=== PATIENT | female | born 1980 | race Caucasian/White ===

== ENCOUNTER 2019-03-01 03:05 | Day surgery (SDC) | payer BC ==
[2019-03-01 03:45] VITALS: BP 111/68; TEMP 97.9; BMI 21.7
[2019-03-01] MEDS ORDERED: Butorphanol Tartrate 1 MG/ML VIAL SLOW IVP PRN (03:57)
[2019-03-01] MEDS ORDERED: Promethazine HCl 25 MG/ML VIAL IM/IV PRN (03:57)
[2019-03-01] MEDS ORDERED: Lactated Ringer's 1,000 ML IV SCH (04:00)
--- NOTE | 2019-03-01 04:00 | PDOC.LDHP ---
Labor and Delivery H&P HPI: Patient of Inga Palacios Here for CTX at 32 weeks HPI: 38 yo SAB1 prior x 1 in past at 35 weeks, here for irreg CTX every 2-6 min or so. No VB no LOF. Good fm. Review of Systems: complete ROS completed and as per HPI Current gestational age (weeks): 32 (3 days) Due date: 04/23/19 Dating criteria: last menstrual period Grav: 3 Para: 1 OB History Details: at 35 weeks Current complications: none Abnormal US findings: No Current medications: pre- vitamins Previous surgical history: other (eye surg as child) Allergies/Adverse Reactions: Allergies Allergy/AdvReac Type Severity Reaction Status Date / Time No Known Allergies Allergy Unverified 03/01/19 03:36 Social history: none - Physical Exam Vital signs reviewed and normal: yes (111/68) General: NAD Heart: RRR Lungs: CTAB Abdomen: gravid Extremeties: no edema FHT: category 1 [place] contractions every: irregualr about every 3-6 - Assessment threatened PTL at 32 weeks - Plan Plan: observation in L&D (1. I have ordered a cervical length check, 2. If short , order FFN if applicable, 3. IVF hydrate. If evidence of true PTL, we will admit for steroids/ABX. Past EGA for MagSulfate for neuroprotection)
--- NOTE | 2019-03-01 05:09 | PDOC.EVN ---
Event Note - Event Note Event Note: CX by harshad is 3.1cm long. This is reassurring. BUT, still with some CTX...I will give stadol and phenergan and try TERB x1 SQ for therapeutic rest. Follow for another hour.
[2019-03-01] MEDS ORDERED: Terbutaline Sulfate 1 MG/ML VIAL ONE (05:12)
[2019-03-01] MEDS ORDERED: Terbutaline Sulfate 1 MG/ML VIAL SC SCH (05:15)
--- NOTE | 2019-03-01 07:57 | PDOC.EVN ---
Event Note - Event Note Event Note: Now feels better. Was able to rest. CTXs have greatly spaced out to one evry 10-20 minutes No LOF No VB BPs ok, HR 80 Threatened PTL at 32 weeks with CL 3.1 last check. Feels better. Likely home this AM
--- NOTE | 2019-03-01 10:07 | ULT ---
PRELIMINARY REPORT/[facility]/EMERGENCY AFTER HOURS PROCEDURE: EXAM: US , Transvaginal EXAM DATE/TIME: 03/01/2019 4:42 AM CLINICAL HISTORY: 38 years old, female; Pain; Other: Contractions at 32wks, HX of prev ; TECHNIQUE: Imaging protocol: Real-time transvaginal obstetrical ultrasound of the maternal pelvis and a first tr imester with image documentation. Transvaginal imaging was used for better evaluation of th e fetus and adnexa. COMPARISON: No relevant prior studies available. FINDINGS: GESTATION: Gestation: Not-evaluated for purpose of this exam. Presentation: Fetus is in a vertex position. MATERNAL: Cervix: Cervical length measures approximately 3 cm. IMPRESSION: Cervical length measures approximately 3 cm. Thank you for allowing us to participate in the care of your patient. Dictated and Authenticated by: Nate Amaya MD 03/01/2019 5:27 AM Central Time ([place] & [place]) FINAL REPORT TRANSVAGINAL ULTRASOUND: Date: 03/01/19 HISTORY: Evaluate cervical length. Patient is 32 weeks . FINDINGS: Translabial examination demonstrates cervical length of 3.1 cm. Fetus is in vertex presentation. Parul ent is having contractions. IMPRESSION: Cervical length is 3.1 cm on this limited translabial ultrasound examination only. Report in agreement with preliminary report given on-call by Elie. POS: [facility]
--- NOTE | 2019-03-01 10:31 | DIS ---
DATE OF ADMISSION: 03/01/2019 DATE OF DISCHARGE: 03/01/2019 TIME OF DISCHARGE: 1015 hours. SUMMARY OF HOSPITAL COURSE: Ms. Seth came in at approximately 0330 hours. She sees Elba Palacios at [facility]. She is a G3, P1, at 32 weeks, on [place], having contractions q.2 to 6 upon presentation. She received IV hydration, terbutaline, and contractions have ceased. Cervical length was 3 cm on ultrasound. heart rate tracing has been reassuring with positive accelerations, no decelerations, and no contractions noted. Vitals are stable with a blood pressure of 110/68, pulse of 92, respirations of 18, and the patient has remained afebrile. The patient will be discharged home. She will keep scheduled followup with Elba Palacios. She has ER precautions for return of contractions. Job ID: [id number]
== END 2019-03-01 10:20 | disposition home health service (06) ==
LOC: L&D/OP 03:05
PROVIDERS: ATTEND Obstetrics & Gynecology
DX: O47.03 False labor before 37 completed weeks of gestation, third trimester (principal); Z3A.32 32 weeks gestation of pregnancy
CPT/HCPCS: 96360; 96372; 96375; 99282; J0595; J2550; J3105

== ENCOUNTER 2019-04-05 16:40 | Day surgery (SDC) | payer BC ==
[2019-04-05 17:20] VITALS: BP 137/74; TEMP 98.3; BMI 22.6
[2019-04-05] MEDS ORDERED: hydrALAZINE 20 MG/ML VIAL SLOW IVP PRN (19:58)
--- NOTE | 2019-04-05 20:55 | PRG ---
DATE OF SERVICE: 04/05/2019 TIME OF SERVICE: 1945 hours. PRESENTING COMPLAINT: Contractions at 37 to 38 weeks. HISTORY OF PRESENT ILLNESS: Ms. Seth is a 38-year-old, 3, para 1, AB1 at 37 and 3 with EDC of 04/23/2019, complains of contractions off and on for the past several days. She was seen in the office last week and noted to be 3, 50, and -2. She denies rupture of membranes. She reports an active fetus. [employer] HISTORY: delivery x1. SAB x1. Advanced maternal age. Blood type B negative. Group B strep positive. 50-gram within normal limits. PAST MEDICAL HISTORY: None. PAST SURGICAL HISTORY: Eye surgery at age 1. ALLERGIES: NONE. MEDICATIONS: 1. Bupap. 2. Zenda. 3. vitamins. 4. The patient received RhoGAM at appropriate time. SOCIAL HISTORY: Denies tobacco, alcohol, or drug use. FAMILY HISTORY: Noncontributory. REVIEW OF SYSTEMS: Noncontributory. PHYSICAL EXAMINATION: GENERAL: Thin white female, in no acute distress. VITAL SIGNS: Temperature 98.7, respirations 18, blood pressure 118/72, pulse 75. HEENT: Within normal limits. LUNGS: Clear to auscultation bilaterally. HEART: Regular rate and rhythm. ABDOMEN: Soft and nontender without significant palpable contractions. Fundal height 36. FHTs 140s. VULVA: Without lesions. VAGINA: Without discharge. CERVICAL: Exam by RN both on presentation and after walking for 2 hours is 3 to 3-1/2, 70% effaced, -2, cephalic, bag of water intact, ballots with ease. EXTREMITIES: No clubbing, cyanosis, or edema. monitoring is carried out x2 for greater than 20 minutes with positive accelerations, no decelerations. Baseline is 140s to 150s. Accelerations to 160s. No decelerations noted. Category I heart rate tracing. IMPRESSION: [place] contractions. No evidence of active labor nor evidence of rupture of membranes. PLAN: Discharge home. ER precautions. If the patient returns in labor, we will administer appropriate group B strep prophylaxis. The patient is to keep scheduled followup in 4 days with Elba Palacios at [facility]. Job ID: [id number]
== END 2019-04-05 20:00 | disposition home or self-care (01) ==
LOC: L&D/OP 16:40
PROVIDERS: ATTEND Obstetrics & Gynecology
DX: O47.1 False labor at or after 37 completed weeks of gestation (principal); Z3A.37 37 weeks gestation of pregnancy
CPT/HCPCS: 99283

== ENCOUNTER 2019-04-06 22:26 | Inpatient (IN) | payer BC ==
[2019-04-06] MEDS ORDERED: Lidocaine 1% (PF) 30 ML VIAL ONE (22:41)
[2019-04-06] MEDS ORDERED: Oxytocin 10 UNITS/ML VIAL ONE (22:41)
[2019-04-06] MEDS ORDERED: Promethazine HCl 25 MG/ML VIAL IM PRN (23:05)
[2019-04-06] MEDS ORDERED: Lactated Ringer's 1,000 ML IV PRN (23:05)
[2019-04-06] MEDS ORDERED: Methylergonovine 0.2 MG/ML VIAL IM PRN (23:05)
[2019-04-06] MEDS ORDERED: Lidocaine 1% (PF) 30 ML VIAL SC PRN (23:05)
[2019-04-06] MEDS ORDERED: HYDROcodone/Acetaminophen 5/325 mg Tablet PO PRN ×2 (23:05)
[2019-04-06] MEDS ORDERED: Misoprostol 200 MCG TAB PR PRN (23:05)
[2019-04-06] MEDS ORDERED: NS / Oxytocin 40 units/1000ml 1,000 ML IV PRN (23:05)
[2019-04-06] MEDS ORDERED: hydrALAZINE 20 MG/ML VIAL SLOW IVP PRN (23:05)
[2019-04-06] MEDS ORDERED: Ibuprofen 800 MG TAB PO PRN (23:05)
[2019-04-06] MEDS ORDERED: Ondansetron PF 4 MG/2 ML Vial IVP PRN (23:05)
--- NOTE | 2019-04-06 23:15 | PDOC.LDHP ---
Labor and Delivery H&P Chief complaint: contractions, loss of fluid HPI: contractions started at 1800 tonight, irregular but intense, with bloody show. At 2200 her water broke and things got very intense and she arrived to the hospital crowing. Current gestational age (weeks): 37 Dating criteria: last menstrual period Grav: 2 Para: 1 OB History Details: delivery at 34 weeks with first delivery Current complications: none, other (Advanced Maternal age) Abnormal US findings: No Current medications: pre-vanessa vitamins Allergies/Adverse Reactions: Allergies Allergy/AdvReac Type Severity Reaction Status Date / Time No Known Allergies Allergy Verified 04/05/19 17:20 Social history: other - Physical Exam Vital signs reviewed and normal: yes General: breathing through contractions Lungs: nonlabored breathing Abdomen: gravid FHT: category 1 - Vaginal Exam cm dilated: 10 Effacement: 100% Station: 3+ - OB Labs Antibody Screen: negative HIV: negative RPR: negative HEPSAg: negative 1 hour GCT: negative GBS: positive Urine drug screen: negative Rubella: immune - Assessment L&D Assessment: term patient in labor - Plan Plan: admit to L&D, GBS antibiotic prophylaxis, informed consent obtained
--- NOTE | 2019-04-06 23:22 | PDOC.OPDEL ---
OB Operative/Delivery Note Delivery Dr/Surgeon: arely Assist: Arie Weeks gestation: 37 Anesthesia: none - Findings A Sex: male - 1 min: 8 - 5 min: 9 - Additional Findings/Plan Placenta delivered: spontaneous Repaired Obstetrical Laceration: 1st degree Estimated blood loss: 250 mL Post delivery plan: routine recovery
[2019-04-07 00:33] LABS: Hemoglobin 11.9 g/dL (12.0-16.0); Mean Corpuscular HGB CONC 33.8 g/dL (32.0-36.0); Mean Corpuscular Hemoglobin 32.3 pg (27.0-31.0); Mean Corpuscular Volume 95.7 fL (78.0-98.0); Mean Platelet Volume 6.8 fL (7.4-10.4); Platelet Count 275 thou/uL (130-400); RBC Distribution Width 11.4 % (11.5-14.5); Red Blood Cell (RBC) Count 3.69 mill/uL (4.20-5.40); White Blood Cell (WBC) Count 18.3 thou/uL (4.8-10.8)
[2019-04-07 00:57] VITALS: BMI 22.6
[2019-04-07 01:11] LABS: HBSAg Index 0.31 S/CO (0-0.99); Hep B Surf Ag Non-Reactive S/CO (NonReactive)
[2019-04-07 01:16] LABS: Syphilis Antibody Nonreactive (Nonreactive); Syphilis Antibody Index 0.02 S/CO (<1.00 Non-Reactive)
[2019-04-07] MEDS ORDERED: Milk Of Magnesia 30 ML UDCUP PO PRN (02:12)
[2019-04-07] MEDS ORDERED: HYDROcodone/Acetaminophen 5/325 mg Tablet PO PRN ×2 (02:12)
[2019-04-07] MEDS ORDERED: NS / Oxytocin 40 units/1000ml 1,000 ML IV SCH (02:12)
[2019-04-07] MEDS ORDERED: Bisacodyl 10 MG SUPP PR PRN (02:12)
[2019-04-07] MEDS ORDERED: Benzocaine-Menthol 82.5 ML CAN TOP PRN (02:12)
[2019-04-07] MEDS ORDERED: hydrALAZINE 20 MG/ML VIAL SLOW IVP PRN (02:12)
[2019-04-07] MEDS: Docusate Calcium (SURFAK) 240 MG CAP PO SCH ×2 (08:52→21:47)
[2019-04-07] MEDS: Prenatal Vitamin 1 TAB PO SCH (08:52)
[2019-04-07] MEDS: Ferrous Sulfate 325 MG TAB PO SCH ×2 (08:52→18:26)
[2019-04-07] MEDS: Ibuprofen 800 MG TAB PO SCH ×3 (08:54→21:47)
[2019-04-07] MEDS ORDERED: Adacel (T-DAP) 0.5 ML SYRINGE IM ONE (09:00)
--- NOTE | 2019-04-07 15:15 | PDOC.PP ---
Post Progress Note Post Day #: 1 Subjective: She is doing well. sore but ok. is under bili lights for elevated jaundice lights. Urintating well. Does not know if she passed gas PO intake tolerated: yes Ambulation: yes Vital Signs (12 hours) Temp Pulse Resp BP Pulse Ox 04/07/19 08:19 98.2 F 87 20 118/65 98 Weight Weight 153 lb - Physical Examination General: NAD Cardiovascular: no m/r/g, RRR Respiratory: non-labored breathing Abdominal: lochia (minimal) Extremities: negative homans (B) Skin: no rash Neurological: no gross focal deficits Psychiatric: A&Ox3, normal affect Result Diagrams: 04/06/19 Unknown Additional Labs: Post Labs Blood Type B NEGATIVE 04/07/19 Unknown Hep Bs Antigen Non-Reactive S/CO (NonReactive) 04/06/19 Unknown (1) (spontaneous vaginal delivery) Code(s): O80 - ENCOUNTER FOR FULL-TERM UNCOMPLICATED DELIVERY Status: Acute (2) First degree perineal laceration Code(s): O70.0 - FIRST DEGREE PERINEAL LACERATION DURING DELIVERY Status: Acute - Assessment/Plan A: s/p and 1st degree repaired laceration P: Discharge home tomorrow if is discharge Routine care
[2019-04-08] MEDS: Ibuprofen 800 MG TAB PO SCH ×2 (05:31→13:50)
[2019-04-08] MEDS: Prenatal Vitamin 1 TAB PO SCH (09:24)
[2019-04-08] MEDS: Docusate Calcium (SURFAK) 240 MG CAP PO SCH (09:24)
[2019-04-08] MEDS: Ferrous Sulfate 325 MG TAB PO SCH ×2 (09:24→16:40)
[2019-04-08 11:49] VITALS: BP 108/65; TEMP 98
== END 2019-04-08 18:00 | disposition home or self-care (01) | DRG 807 ==
LOC: L&D/OP 22:26 → L&D-LIB 22:45 → 3SW 04-07 01:59
PROVIDERS: ADMIT Student in an Organized Health Care Education/Training Program; ATTEND Student in an Organized Health Care Education/Training Program
PROC: 10E0XZZ Delivery of Products of Conception, External Approach (ICD-10-PCS; principal; 2019-04-06)
PROC: 0HQ9XZZ Repair Perineum Skin, External Approach (ICD-10-PCS; 2019-04-06)
DX: O99.820 Streptococcus B carrier state complicating pregnancy (principal); Z37.0 Single live birth; Z3A.37 37 weeks gestation of pregnancy; O70.0 First degree perineal laceration during delivery
CPT/HCPCS: 36415; 85027; 85461; 86780; 86850; 86870; 86900; 86901; 87340; 90384; 96372; 99283; 99285; J2001; J2590